=== PATIENT | female | born 1950 | race Caucasian/White ===

== ENCOUNTER 2017-02-27 05:42 | Day surgery (SDC) | payer MEDICARE ==
--- NOTE | ~2017-02-27 | EGD ---
EGD REPORT [facility] [address] [place] [address] NAME: PATT ALBERTO : [birth year] STATUS : REG [facility] [place] PAT#: [id number] AGE: 66 ADM/REG DATE : 02/27/17 MR#: [id number] REPORT SERV DATE: 02/27/17 DICTATED BY: LUBA BERMUDEZ DATE: 02/27/17 REPORT STATUS : Draft TRANSCRIBED BY: [employer] DATE: 02/27/17 [facility] Patient Name: Patt Alberto Date of : 1950 Attending MD: LUBA BERMUDEZ, Procedure Date No Time: 02/27/2017 Procedure: Colonoscopy Indications: Screening for colorectal malignant neoplasm Referring MD: Britney Lamar Medicines: Monitored Anesthesia Care Complications: No immediate complications. Estimated blood loss: None. Procedure: Pre-Anesthesia Assessment: - ASA Grade Assessment: III - A patient with severe systemic disease. After I obtained informed consent, the scope was passed under direct vision. Throughout the procedure, the patient's blood pressure, pulse, and oxygen saturations were monitored continuously. The PCF [id number] was introduced through the anus and advanced to the cecum, identified by appendiceal orifice and ileocecal valve. The colonoscopy was performed without difficulty. The patient tolerated the procedure well. The quality of the bowel preparation was good. Findings: The perianal and digital rectal examinations were normal. Internal hemorrhoids were found during retroflexion and were Grade I (internal hemorrhoids that do not prolapse). The exam was otherwise without abnormality on direct and retroflexion views. Impression: - Internal hemorrhoids. - The examination was otherwise normal on direct and retroflexion views. Recommendation: - Patient has a contact number available for emergencies. The signs and symptoms of potential delayed complications were discussed with the patient. Return to normal activities tomorrow. Written discharge instructions were provided to the patient. - Return to previous diet. - Continue present medications. - Repeat colonoscopy in 10 years for screening purposes. Procedure Code(s): --- Professional --- EGD REPORT [facility] [address] [place] [address] NAME: PATT ALBERTO : [birth year] STATUS : REG [facility]#: [id number] AGE: 66 ADM/REG DATE : 02/27/17 MR#: [id number] REPORT SERV DATE: 02/27/17 DICTATED BY: LUBA BERMUDEZ DATE: 02/27/17 REPORT STATUS : Draft TRANSCRIBED BY: [employer] DATE: 02/27/17 [id number], Colonoscopy, flexible, proximal to splenic flexure; diagnostic, with or without collection of specimen(s) by brushing or washing, with or without colon decompression (separate procedure) Diagnosis Code(s): --- Professional --- K64.0, First degree hemorrhoids Z12.11, Encounter for screening for malignant neoplasm of colon CPT copyright 2013 [employer]. All rights reserved. The codes documented in this report are preliminary and upon special education preschool teacher review may be revised to meet current compliance requirements. LUBA BERMUDEZ, 02/27/2017 7:44 AM Number of Addenda: 0 Note Initiated On: 02/27/2017 7:04 AM Scope Withdrawal Time 0 hours 9 minutes 28 seconds [address] [place] [address]
[~2017-02-27 05:42] MED LIST: ASAB PO; BREO ELLIPTA 21 EACH INH; CARD120 PO; COREG6 PO; DUONEB INH; FERROUS SULF325 M1 PO; HAIR PO; IBU-200200 MG PO; MICROZIDE PO; MULTIVIT/MIN PO; NICODERM PATCH TOP; PROBIOTIC PO; SKIN PO; SUPER B COMP PO; ULTRAM50 PO; VIT PO; VITAMIN B-122500 MCG SL; VITAMIN D31000 UNIT PO; VITC500 PO; ZYRTEC ALLGY10 MG PO
== END 2017-02-27 23:59 | disposition home or self-care (01) ==
LOC: DMU 05:42
PROVIDERS: Internal Medicine Gastroenterology
PROC: 0DJD8ZZ Inspection of Lower Intestinal Tract, Via Natural or Artificial Opening Endoscopic (ICD-10-PCS; principal; 2017-02-27 07:00)
DX: Z12.11 Encounter for screening for malignant neoplasm of colon (principal); K64.0 First degree hemorrhoids; I10 Essential (primary) hypertension; J44.9 Chronic obstructive pulmonary disease, unspecified; J18.9 Pneumonia, unspecified organism; Z99.81 Dependence on supplemental oxygen; Z87.891 Personal history of nicotine dependence; Z90.49 Acquired absence of other specified parts of digestive tract; Z90.710 Acquired absence of both cervix and uterus; Z98.890 Other specified postprocedural states